=== PATIENT | male | born 1965 | race Caucasian/White ===

== ENCOUNTER 2021-06-14 11:56 | Emergency (ER) | payer OTHER ==
[~2021-06-14 11:56] MED LIST: COMPAZINE10 MG PO; PRINIVIL10 MG PO
[2021-06-14 14:30] LABS: CORONAVIRUS 2019 SARS-COV-2 NEGATIVE (NEGATIVE); INFLUENZA A NAA NEGATIVE (NEGATIVE)
== END 2021-06-14 17:00 | disposition home or self-care (01) ==
LOC: FER 11:56
PROVIDERS: Emergency Medicine
DX: B34.9 Viral infection, unspecified (principal); I10 Essential (primary) hypertension; Z87.891 Personal history of nicotine dependence; Z20.822 Contact with and (suspected) exposure to COVID-19
CPT/HCPCS: 71045; U0002